=== PATIENT | female | born 1990 | race African-American/Black ===

== ENCOUNTER → 2017-08-15 | Outpatient (CLI) | payer OTHER ==
[2017-08-17 09:01] LABS: RUBELLA IgG QUALITATIVE IMMUNE (IMMUNE)
[2017-08-18 00:07] LABS: RUBEOLA IgG ANTIBODY >300.0 AU/mL (Immune >29.9)
== END ==
LOC: M SMT 12:20
DX: Z01.84 Encounter for antibody response examination (principal)
CPT/HCPCS: 86762

== ENCOUNTER 2018-12-12 14:57 | Emergency (ER) | payer OTHER ==
[~2018-12-12] VITALS: Ht 157.5 cm; Wt 79.5 kg
[~2018-12-12 14:57] MED LIST: DOCU10CA PO; IBUP80TA PO; LABE20TAB PO; MAPA500T2 PO; VITAPRTA PO
[2018-12-12 15:42] LABS: BASO % 0.3 % (0.0-1.0); EOS # 0.1 10^3/uL (0.0-0.50); EOS % 1.4 % (0.0-3.0); HEMATOCRIT 42.6 % (36.0-47.0); LYMPH # 2.3 10^3/uL (1.5-6.5); LYMPH % 25.2 % (24.0-44.0); MEAN CORPUSCULAR HGB CONC 32.9 g/dl (32.0-36.5); MEAN CORPUSCULAR VOLUME 91.2 fl (80.0-96.0); MONO # 0.3 10^3/uL (0.0-0.8); MONO % 3.4 % (0.0-5.0); NEUTROPHILS # 6.3 10^3/uL (1.8-7.7); NEUTROPHILS % 69.4 % (36.0-66.0); PLATELET COUNT, AUTOMATED 347 10^3/uL (150-450); RED BLOOD COUNT 4.67 10^6/uL (4.00-5.40); WHITE BLOOD COUNT 9.1 10^3/uL (4.0-10.0)
[2018-12-12 16:05] LABS: ALBUMIN 4.1 GM/DL (3.2-5.2); BILIRUBIN,DIRECT 0.2 MG/DL (0.0-0.2); BILIRUBIN,TOTAL 0.8 MG/DL (0.2-1.0)
[2018-12-12] MEDS ORDERED: KETOROLAC 30 MG/ML VIAL (J1885) IV ONE (16:15)
--- NOTE | 2018-12-12 17:04 | REP ---
Clinical: Lower abdominal pain. Rule out ovarian torsion . Technique: Transabdominal pelvic ultrasound followed by transvaginal examination for better evaluation of the endometrium and adnexa with color Doppler evaluation of the ovaries. Findings: Bladder is collapsed. Normal retroflexed uterus measures 6.5 x 3.2 x 4.6 cm . The endometrial complex measures 4.4 mm thickness. No discrete uterine or endometrial abnormalities are appreciated. Bilateral ovaries are normal in appearance and vascularity without evidence for torsion. Right ovary measures 5.4 x 1.7 x 2.1 cm ; R I = 0.66 . Left ovary measures 5.2 x 1.2 x 1.8 cm ; R I = 0.64 . Trace free fluid in the pelvis is nonspecific and likely physiologic. . Impression: 1. Normal pelvic ultrasound. No evidence for torsion. Electronically Signed by Elias Stanton MD 12/12/2018 04:56 P
[2018-12-12] MEDS ORDERED: FLAG500T PO (17:46)
[2018-12-12] MEDS ORDERED: metroNIDAZOLE (FLAGYL) 500 MG TAB PO ONE (18:00)
[2018-12-12 18:08] VITALS: BP 116/70
== END 2018-12-12 18:10 | disposition home or self-care (01) ==
LOC: M ED 14:57
DX: N76.0 Acute vaginitis (principal); K21.9 Gastro-esophageal reflux disease without esophagitis; Z79.3 Long term (current) use of hormonal contraceptives; F17.210 Nicotine dependence, cigarettes, uncomplicated
CPT/HCPCS: 76830; 76856; 80047; 80076; 81001; 83690; 84702; 85025; 87210; 93976; 96374; 99283; J1885